=== PATIENT | female | born 1960 | race Caucasian/White ===

== ENCOUNTER 2018-01-07 02:05 | Emergency (ER) | payer BC ==
[~2018-01-07] VITALS: Ht 154.9 cm; Wt 114.0 kg
[2018-01-07 03:47] VITALS: BP 132/70
== END 2018-01-07 16:54 | disposition home or self-care (01) ==
LOC: ER 09:26
DX: R04.0 Epistaxis (principal); F41.9 Anxiety disorder, unspecified; I10 Essential (primary) hypertension; E78.00 Pure hypercholesterolemia, unspecified; Z88.6 Allergy status to analgesic agent
CPT/HCPCS: 93005; 99283